=== PATIENT | female | born 1970 ===

== ENCOUNTER → 2017-04-10 | Outpatient (CLI) | payer BC ==
[~2017-04-10] MED LIST: BCPILLS PO; BUPRTAB51 PO; HYDR-389 PO; LEVO25TA5 PO; LISD60CA PO; NXM/40 PO
== END | disposition home or self-care (01) ==
LOC: C.LABPBG 14:59
PROVIDERS: ATTEND Nurse Practitioner Adult Health
DX: E78.5 Hyperlipidemia, unspecified (principal); E03.9 Hypothyroidism, unspecified